=== PATIENT | female | born 1980 | race Caucasian/White ===

== ENCOUNTER → 2018-04-29 | Outpatient (REF) | LOC: ZLAB.WCH 15:56 | DX: Z01.89 Encounter for other specified special examinations (principal) ==

== ENCOUNTER 2019-08-26 05:33 | Day surgery (SDC) | payer OTHER ==
[~2019-08-26] VITALS: Ht 152.4 cm; Wt 83.2 kg
[2019-08-26] VITALS (14 sets, daily range): BP systolic 97–132; BP diastolic 48–78; PULSE 64–99; TEMP 98–99.1
[~2019-08-26 05:33] MED LIST: MELATONIN5 M1 PO; TYLENOL 325MG325 MG PO
--- NOTE | 2019-08-26 09:58 | NUR ---
0930 PATIENT HERE FROM OR AT THIS TIME. VS WNL AND ASSESSMENT COMPLETED
--- NOTE | 2019-08-26 12:56 | NUR ---
1230 UP TO BATHROOM TOLERATE WELL.
--- NOTE | 2019-08-26 14:53 | NUR ---
1430 patient vomits 250 green emesis. rates pain 8 out of 10. VS wnl. 1450 zofran 4mg iv and morphine 2mg iv given per patient request at this time. Vs wnl and sao2 98% on room air. lungs clear and bs active
--- NOTE | 2019-08-26 15:35 | NUR ---
1540 PATEINT ABLE TO REST NOW. STILL COME DISCOMFORT BUT NOTHING LIKE IT WAS. VITAL SIGNS WNL.
--- NOTE | 2019-08-26 18:30 | NUR ---
1830 C/O INTENSE SURGICAL SITE PAIN. RETURNED TO BED. MORPHINE 2MG IVPB. LIGHTS OUT TO SLEEP.
--- NOTE | 2019-08-26 21:00 | NUR ---
2100 UP AND AMB IN HALLWAY WITH ASSIST. VOIDED 200CC. REG DIET TAKEN WITH 40% EATEN AND THEN C/O NAUSEA AND INTENSE SURGICAL SITE PAIN. BANDAIDS TO INC C,D&I WITH BRUISING AROUND LEFT LOWER BANDAID. 2104 MORPHINE 2MG IVP AND PHENERGAN 25MG IV GIVEN. FOR PAIN AND NAUSEA.
--- NOTE | 2019-08-26 22:00 | NUR ---
2200 PT SLEEPING SOUNDLY.
--- NOTE | 2019-08-27 00:20 | NUR ---
0020 AWAKE AND UP TO BR ON OWN. UNABLE TO VOID AT THIS TIME. SCHEDULED MOTRIN 800MG PO GIVEN.
--- NOTE | 2019-08-27 01:30 | NUR ---
0130 UP TO BR AND UNABLE TO VOID. BLADDER SCAN DONE WITH 231 CC IN BLADDER. STATES FEELS SO UNCOMFORTABLE AND CAN'T TELL WHETHER SHE NEEDS TO VOID OR IS JUST IN PAIN. STATES THINKS THE PERCOCET MAKES HER NAUSEATED. MORPHINE 2MG IVP GIVEN. 0200 SLEEPING SOUNDLY.
[2019-08-27 03:00] VITALS: BP 113/62; PULSE 95; TEMP 98.8
--- NOTE | 2019-08-27 03:00 | NUR ---
0300 UP TO BR AND UNABLE TO VOID. STATES FEELS NEED TO VOID BUT UNABLE TO DO SO. STRAIGHT CATH DONE WITH 300CC LIGHT YELLOW URINE RETURNED. PO TAKEN WELL. 0320 PERCOCET X1 PO GIVEN. LIGHTS OUT TO SLEEP
--- NOTE | 2019-08-27 05:00 | NUR ---
0500 UP TO BR ON OWN. UNABLE TO VOID. RETURNED TO BED TO SLEEP.
[2019-08-27 07:52] VITALS: BP 107/62; PULSE 99; TEMP 98.6
[2019-08-27] MEDS ORDERED: PERCOCET 325 MG1 TA2 PO (08:09)
[2019-08-27] MEDS ORDERED: MOTRIN 800800 MG/TAB PO (08:09)
[2019-08-27] MEDS ORDERED: STOOL SOFTENER100 M2 PO (08:10)
--- NOTE | 2019-08-27 11:00 | NUR ---
1100-Patient has voided easily, eaten without nausea and pain is controlled with PO PRN pain medication. Reviewed discharge instructions with patient. Verbalized understanding and denies questions. Provided new prescriptions and appointments for follow up. 1215-Ambulatory off unit with FRANK Hoyos to spouse.
== END 2019-08-27 12:15 | disposition home or self-care (01) ==
LOC: SDCO 05:33 → OB 09:30 → SDCO 08-27 12:15
DX: N88.8 Other specified noninflammatory disorders of cervix uteri (principal); Z88.2 Allergy status to sulfonamides; D64.9 Anemia, unspecified; E84.9 Cystic fibrosis, unspecified; N80.3 Endometriosis of pelvic peritoneum; N92.0 Excessive and frequent menstruation with regular cycle; N81.2 Incomplete uterovaginal prolapse
CPT/HCPCS: OP; J0330; J0690; J1100; J2250; J2270; J2405; J2550; J2704; J3010; J7120

== ENCOUNTER 2020-07-25 11:18 | Outpatient (RCR) | payer OTHER ==
[~2020-07-25 11:18] MED LIST changes: +MOTRIN 800800 MG/TAB PO; +PERCOCET 325 MG1 TA2 PO; +STOOL SOFTENER100 M2 PO
== END 2020-10-23 | disposition home or self-care (01) ==
LOC: WSOH
DX: S61.346A Puncture wound with foreign body of right little finger with damage to nail, initial encounter (principal); W46.1XXA Contact with contaminated hypodermic needle, initial encounter; Z98.890 Other specified postprocedural states; Y99.0 Civilian activity done for income or pay